=== PATIENT | female | born 1970 | race Caucasian/White ===

== ENCOUNTER 2019-12-06 09:30 | Outpatient (CLI) | payer OTHER, SELFPAY ==
--- NOTE | ~2019-12-06 | XR_ITS ---
XR knee LT 2V 12/06/2019 09:51 Indication: Left knee pain Procedure: 2 views left knee Comparison: Comparison to multiple prior studies sequentially, with oldest reviewed study dated 11/2008. Findings: There is moderate tricompartment osteoarthritis of the left knee. No fracture or traumatic malalignment. No significant joint effusion. No foreign bodies. Impression: 1: Moderate tricompartment osteoarthritis of the left knee. Reviewed, dictated and finalized at location A. Impression: 1: Moderate tricompartment osteoarthritis of the left knee.
== END 2019-12-06 09:31 ==
PROVIDERS: Visit Provider Nurse Practitioner Family
DX: M17.12 Unilateral primary osteoarthritis, left knee (principal)
CPT/HCPCS: 73560

== ENCOUNTER 2021-09-06 18:33 | Emergency (ER) | payer OTHER, SELFPAY ==
--- NOTE | 2021-09-06 18:39 | ED.URI ---
HPI - URI/Sore Throat General Chief Complaint: Upper Respiratory Infection Stated Complaint: uri Time Seen by Provider: 09/06/21 18:44 Source: patient Mode of arrival: ambulatory Limitations: no limitations History of Present Illness HPI Narrative: 51-year-old female presented for complaint of right sided frontal headache for 4 days with associated postnasal drainage. She has been taking [id number] Zyrtec, Flonase, and Sudafed for symptoms without relief. She endorses photophobia. She denies vision changes, dizziness, nausea or vomiting or gait disturbance. Endorses a history of migraines. Denies increased stress, exercise, limiting caffeine, or extreme dieting. Related Data Home Medications Medication Instructions Recorded Confirmed Flonase 09/06/21 Pain Pump With Fentanyl 09/06/21 Zyrtec 09/06/21 buspirone 15 mg tablet tablet 09/06/21 celecoxib 200 mg capsule cap 09/06/21 doxepin 50 mg capsule cap 09/06/21 duloxetine 60 mg capsule,delayed cap PO 09/06/21 release estradiol 0.1 mg/24 hr weekly patch 09/06/21 transdermal patch metformin 500 mg tablet tablet 09/06/21 zaleplon 10 mg capsule cap 09/06/21 Allergies Allergy/AdvReac Type Severity Reaction Status Date / Time spinach Allergy Intermediate HIVES Verified 07/21/15 13:44 strawberry Allergy Unknown TURN RED, Verified 07/21/15 13:44 HURT STOMACH, HIVES [place] Allergy Unknown UNKNOWN Uncoded 07/21/15 13:44 Review of Systems Review of Systems: CONSTITUTIONAL: Denies body aches, fever, chills, or sweats. EYES: Denies visual changes, redness, or discharge. ENT: Denies sore throat, or otalgia. CARDIOVASCULAR: Denies chest pain, palpitations, or edema. RESPIRATORY: Denies cough or dyspnea. GASTROINTESTINAL: Denies abdominal pain, nausea, vomiting, or diarrhea. SKIN: Denies rash, itching, or wounds. MUSCULOSKELETAL: Denies back pain, joint pain, or myalgia. NEUROLOGIC: Denies numbness, tingling, or weakness. All systems reviewed & are unremarkable except as noted in HPI and below PMFSH Family History Family History Other Cerebrovascular accident Family history of arthritis Social History Social History Smoking status: Never smoker Alcohol intake: current Comments At time of signature, I have reviewed and agree with nursing past medical, surgical, social and family history unless otherwise noted. Please see nursing chart for further information. There is no relevant family history pertinent to the presenting complaint Exam Narrative: GENERAL: Well-appearing HEAD: Normocephalic, atraumatic. EYES: EOMI. PERRLA No redness or drainage. Conjunctivae normal. ENT: Mucous membranes pink and moist. No rhinorrhea. TMs normal bilaterally. Throat normal. Uvula midline. NECK: Normal AROM. Supple. No lymphadenopathy. CHEST: No respiratory distress. Clear to auscultation. HEART: Regular rate and rhythm. SKIN: Warm, dry, no rash. Capillary refill normal. Normal skin turgor. NEURO: No focal deficits. Alert and oriented x3. Gait steady. PSYCH: Normal affect. Course Course Emergency Course: Patient is aware of diagnosis, understands and agrees to treatment plan. Anticipatory guidance given. Patient agrees to follow-up as directed and is aware of reasons to seek care at the emergency department. Portions of this record may have been created with voice recognition software Level of Care: Express Care Visit Vital Signs Vital signs: Vital Signs Temperature 98.1 F 09/06/21 18:40 Pulse Rate 90 09/06/21 18:40 Respiratory Rate 16 09/06/21 18:40 Blood Pressure 134/92 H 09/06/21 18:40 Pulse Oximetry 97 09/06/21 18:40 Oxygen Delivery Room Air 09/06/21 18:40 Temperature 98.1 F 09/06/21 18:40 Pulse Rate 90 09/06/21 18:40 Respiratory Rate 16 09/06/21 18:40 Blood Pre
[2021-09-06 18:40] VITALS: BP 134/92; PULSE 90; RESP 16; TEMP 36.7; O2SAT 97
[2021-09-06] MEDS: KETOROLAC (*BKC) 60 MG/2 ML VIAL IM (19:05)
== END 2021-09-06 19:59 | disposition home or self-care (01) ==
PROVIDERS: Emergency Provider Nurse Practitioner Family
DX: R51.9 Headache, unspecified (principal); R73.03 Prediabetes
CPT/HCPCS: 96372; 99213; G0463; J1885

== ENCOUNTER → 2022-08-01 16:40 | Outpatient (CLI) | payer OTHER, SELFPAY ==
--- NOTE | ~2022-08-01 | XR_ITS ---
Left Knee Technique: AP, lateral, and sunrise views were obtained. Clinical History: Pain Findings: No fracture or dislocation is seen. There is narrowing of the medial compartment. There is moderate tricompartmental osteophyte formation. Soft tissues are unremarkable. No joint effusion is s een. Impression: Moderate to advanced degenerative change of the medial compartment, and mild to moderate degenerative change of the lateral and patellofemoral compartments. Reviewed, dictated and finalized at location M. Impression: Moderate to advanced degenerative change of the medial compartment, and mild to moderate degenerative change of the lateral and patellofemoral compartments.
--- NOTE | ~2022-08-01 | XR_ITS ---
Right Knee Technique: AP, lateral, and sunrise views were obtained. Clinical History: Pain Findings: No fracture or dislocation is seen. There is medial compartment narrowing. Moderate tricomp artmental osteophyte formation is present. Soft tissues are unremarkable. No joint effusion is seen. Impression: Moderate to advanced degenerative change of the medial compartment. Mild to moderate degenerative change of the lateral and patellofemoral compartments. Reviewed, dictated and finalized at location M. Impression: Moderate to advanced degenerative change of the medial compartment. Mild to moderate degenerative change of the lateral and patellofemoral compartm ents.
== END ==
PROVIDERS: PCP Anesthesiology Pain Medicine; Visit Provider Anesthesiology Pain Medicine
DX: M17.0 Bilateral primary osteoarthritis of knee (principal)
CPT/HCPCS: 73562